=== PATIENT | male | born 1965 | race Caucasian/White ===

== ENCOUNTER 2017-12-08 12:30 | Emergency (ER) | payer BC, OTHER ==
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
[2017-12-08 12:51] VITALS: BP 124/78; PULSE 66; TEMP 97.4; BMI 34.0
[2017-12-08 13:17] LABS: URINE APPEARANCE Clear; URINE BILIRUBIN Negative (NEGATIVE); URINE BLOOD Trace-lysed (NEGATIVE); URINE COLOR YELLOW; URINE GLUCOSE (UA) Negative (NEGATIVE); URINE KETONE Trace (NEGATIVE); URINE LEUK ESTERASE Negative (NEGATIVE); URINE NITRITE Negative (NEGATIVE); URINE PROTEIN Negative (NEGATIVE); URINE UROBILINOGEN 0.2 (0.2-1.0)
[2017-12-08 13:40] LABS: URINE MUCUS 2+
== END 2017-12-08 14:13 | disposition home or self-care (01) ==
LOC: FER 12:30
DX: R30.0 Dysuria (principal)
CPT/HCPCS: 81003; 81015; 87086; 99282-25